=== PATIENT | female | born 1975 | race Caucasian/White ===

== ENCOUNTER 2016-11-29 07:12 | Outpatient (CLI) | payer OTHER ==
--- NOTE | 2016-11-30 16:14 | Mammography Report ---
DIGITAL SCREENING MAMMOGRAM: 11/29/2016 CLINICAL INDICATION: A 40-year-old nulliparous patient with family history of breast cancer, for scre ening. COMPARISON: 02/2015, 11/2009. TECHNIQUE: Routine CC and MLO projections were obtained of the breasts. FINDINGS: The breasts again demonstrate scattered fibroglandular densities bilaterally. Punctate, ty pically benign calcifications are present. No suspicious masses, clustered microcalcifications, or re gions of architectural distortion are identified. IMPRESSION: BENIGN FINDINGS. RECOMMENDATION: ROUTINE ANNUAL SCREENING UNLESS OTHERWISE CLINICALLY INDICATED. BIRADS CATEGORY 2-BENIGN FINDINGS. STANDARD QUALIFYING STATEMENTS 1. This examination was reviewed with the aid of Computer-Aided Detection (CAD). 2. A negative or benign imaging report should not delay biopsy if clinically suspicious findings are present. Consider surgical consultation if warranted. More than 5% of cancers are not identified by i maging. 3. Dense breasts may obscure an underlying neoplasm. JOB #: [id number] EXT JOB #:[id number]
== END 2016-11-29 07:13 | disposition home or self-care (01) ==
LOC: DI 07:12
PROVIDERS: ATTEND Nurse Practitioner Family
DX: Z12.31 Encounter for screening mammogram for malignant neoplasm of breast (principal); Z80.3 Family history of malignant neoplasm of breast
CPT/HCPCS: 77067

== ENCOUNTER 2017-10-09 15:45 | Outpatient (CLI) | payer OTHER ==
--- NOTE | 2017-10-10 08:23 | XRAY Report ---
Procedure Date: 10/09/2017 Accession Number: [id number] / [id number] Procedure: XRS - Knee 3 View LT CPT Code: FULL RESULT: EXAM: Knee 3 View LT DATE: 10/09/2017 4:20 PM CLINICAL HISTORY: PAIN IN LEFT KNEE, PAIN IN RIGHT FOOT COMPARISON: None. TECHNIQUE: 3 views. FINDINGS: Bones: Normal. No fractures or bone lesions. Joints: Degenerative changes are most pronounced in the medial femoral tibial compartment, [id number]. No joint effusion. Soft Tissues: Normal. No soft tissue swelling. IMPRESSION: Osteoarthrosis. RADIA
--- NOTE | 2017-10-10 08:24 | XRAY Report ---
Procedure Date: 10/09/2017 Accession Number: [id number] / [id number] Procedure: XRS - Foot 3 View RT CPT Code: FULL RESULT: EXAM: Foot 3 View RT DATE: 10/09/2017 4:20 PM CLINICAL HISTORY: PAIN IN LEFT KNEE, PAIN IN RIGHT FOOT COMPARISON: None. TECHNIQUE: 3 views. FINDINGS: Bones: Metallic density wiring projects over the base of the first metatarsal which demonstrates posttraumatic changes, likely orthopedic hardware not definitively identified. No fracture or aggressive osseous lesion is seen. There is inferior calcaneal spurring. Joints: Mild degenerative changes about the midfoot. Soft Tissues: Normal. No soft tissue swelling. IMPRESSION: Posttraumatic changes in the first ray and mild degenerative changes in the midfoot. Inferior calcaneal spurring. RADIA
== END 2017-10-09 15:46 | disposition home or self-care (01) ==
LOC: DI.S 15:45
PROVIDERS: ATTEND Nurse Practitioner Family
DX: M17.12 Unilateral primary osteoarthritis, left knee (principal); M79.671 Pain in right foot; M77.31 Calcaneal spur, right foot

== ENCOUNTER 2019-01-08 07:36 | Outpatient (CLI) | payer OTHER ==
[2019-01-08 10:40] LABS: BASOPHILS % (AUTO) 0.8 %; EOSINOPHILS # (AUTO) 0.1 10^3/uL (0.0-0.7); EOSINOPHILS % (AUTO) 2.4 %; HGB - HEMOGLOBIN 13.3 g/dL (12.0-16.0); LYMPHOCYTES # (AUTO) 1.4 10^3/uL (1.5-3.5); LYMPHOCYTES % (AUTO) 26.7 %; MEAN CORPUSCULAR HEMOGLOBIN 27.3 pg (27.0-31.0); MEAN CORPUSCULAR HGB CONC 31.9 g/dL (32.0-36.0); MEAN CORPUSCULAR VOLUME 85.6 fL (81.0-99.0); MEAN PLATELET VOLUME 11.2 fL (7.9-10.8); MONOCYTES # (AUTO) 0.4 10^3/uL (0.0-1.0); MONOCYTES % (AUTO) 8.1 %; NEUTROPHILS # (AUTO) 3.1 10^3/uL (1.5-6.6); NEUTROPHILS % (AUTO) 61.6 %; PLT - PLATELET COUNT 213 10^3/uL (130-450); RED BLOOD COUNT 4.87 10^6/uL (4.20-5.40); RED CELL DISTRIBUTION WIDTH 14.2 % (12.0-15.0); WHITE BLOOD COUNT 5.1 x10^3/uL (4.8-10.8)
[2019-01-08 10:51] LABS: ALKALINE PHOSPHATASE 51 IU/L (42-121); ALT ALANINE AMINOTRANSFERASE 20 IU/L (10-60); AST ASPARTATE AMINOTRANSFERASE 19 IU/L (10-42); BUN - BLOOD UREA NITROGEN 15 mg/dL (6-20); CALCIUM 9.1 mg/dL (8.5-10.3); CARBON DIOXIDE - CO2 28 mmol/L (21-32); CHLORIDE 104 mmol/L (101-111); CHOL/HDL RATIO 3.3 (<4.4); CHOLESTEROL 167 mg/dL; CREATININE 0.8 mg/dL (0.4-1.0); GFR - MDRD 78 (>89); GLUCOSE 95 mg/dL (70-100); HDL CHOLESTEROL 50 mg/dL; LDL CHOLESTEROL,CALCULATED 98 mg/dL; SODIUM 139 mmol/L (135-145); VLDL CHOLESTEROL 19 mg/dL
[2019-01-08 10:55] LABS: HB2 TOTAL 13.3 g/dL; HEMOGLOBIN A1C 0.51 g/dL; HEMOGLOBIN A1C % 5.7 % (4.6-6.2)
== END 2019-01-08 07:37 | disposition home or self-care (01) ==
LOC: LAB.S 07:36
PROVIDERS: ATTEND Registered Nurse
DX: Z78.0 Asymptomatic menopausal state (principal); E04.9 Nontoxic goiter, unspecified; E66.9 Obesity, unspecified; L68.0 Hirsutism
CPT/HCPCS: 36415; 80053; 80061; 83036; 83721; 84443; 85025

== ENCOUNTER 2019-02-13 07:54 | Outpatient (CLI) | payer OTHER ==
--- NOTE | 2019-02-13 09:31 | Mammography Report ---
Reason: ROUTINE MAMMO Procedure Date: 02/13/2019 Accession Number: [id number] / [id number] Procedure: [facility] - Screening Mammo w/Stewart CPT Code: Final Report FULL RESULT: EXAM: Screening Mammo w/Stewart DATE: 02/13/2019 8:29 AM CLINICAL HISTORY: Screening encounter. History of nulliparity. Family history of breast cancer in the mother at the age of 60. TECHNIQUE: (B) - Bilateral CC and MLO views were obtained. COMPARISON: 11/29/2016 through 12/01/2009. PARENCHYMAL PATTERN: (A) - The breast(s) demonstrate(s) scattered fibroglandular densities. FINDINGS: There are no suspicious masses, calcifications, or areas of distortion. IMPRESSION: Negative examination. BI-RADS category 1. RECOMMENDATION: (ANNUAL) - Recommend routine annual screening mammography. BI-RADS CATEGORY: (1) - Negative. STANDARD QUALIFYING STATEMENTS: 1. This examination was not reviewed with the aid of Computer-Aided Detection (CAD). 2. A negative or benign imaging report should not preclude biopsy if clinically suspicious findings are present. 3. Dense breasts may obscure an underlying neoplasm. 4. This examination was reviewed with the aid of 3D breast imaging (tomosynthesis).
== END 2019-02-13 07:55 | disposition home or self-care (01) ==
LOC: DI 07:54
DX: Z12.31 Encounter for screening mammogram for malignant neoplasm of breast (principal); Z80.3 Family history of malignant neoplasm of breast
CPT/HCPCS: 77063; 77067

== ENCOUNTER 2019-02-23 07:12 | Outpatient (CLI) | payer OTHER ==
--- NOTE | 2019-02-23 16:34 | Ultrasound Report ---
Reason: VAGINAL DISCHARGE, POS Procedure Date: 02/23/2019 Accession Number: [id number] / [id number] Procedure: US - Pelvic w/Transvaginal CPT Code: Final Report FULL RESULT: EXAM: PELVIC ULTRASOUND EXAM DATE: 02/23/2019 09:00 AM. CLINICAL HISTORY: Vaginal discharge, PCOS. LMP: 1.5 weeks ago. COMPARISON: None. TECHNIQUE: Realtime transabdominal pelvic scan performed to identify the uterus and adnexa and as an overview of other pelvic structures, followed by transvaginal scan to provide greater detail of the uterus and adnexa, with static image documentation. FINDINGS: Uterus: 8.5 x 4.3 x 5.7 cm, volume 108 cc. Anteverted position. Normal overall size and echotexture. Masses: None. Endometrium: 9 mm. There is an anterior fundal endometrial echogenic nodule with small blood flow in the base, 0.9 x 0.5 x 0.9 cm. Cervix: There are 2 nabothian cysts. Right Ovary: 4.2 x 2.7 x 2.1 cm, volume 12.4 cc. There are multiple peripheral follicle structures. Normal blood flow. Left Ovary: 3.1 x 2.2 x 3.5 cm, volume 12.5 cc. There are multiple peripheral follicle structures. Normal blood flow. Free Fluid: None. Other: None. IMPRESSION: 1. Prominent size of the bilateral ovaries with multiple peripheral follicle structures, suggesting PCOS. 2. An anterior fundal endometrial echogenic nodule with small blood flow in the base, 0.9 x 0.5 x 0.9 cm, suspicious for atypical appearance of endometrial polyp versus pedunculated submucosal fibroid. RADIA
== END 2019-02-23 07:13 | disposition home or self-care (01) ==
LOC: DI 07:12
PROVIDERS: ATTEND Obstetrics & Gynecology
DX: N89.8 Other specified noninflammatory disorders of vagina (principal); E28.2 Polycystic ovarian syndrome
CPT/HCPCS: 76830; 76856

== ENCOUNTER 2019-08-17 08:00 | Outpatient (CLI) | payer OTHER | END 2019-08-17 23:59 | disposition home or self-care (01) | LOC: LAB.R 08:00 | PROVIDERS: ATTEND Nurse Practitioner Family | DX: R19.7 Diarrhea, unspecified (principal) | CPT/HCPCS: 81599; 87177; 87209; 87329 ==

== ENCOUNTER 2019-09-08 05:29 | Outpatient (CLI) | payer OTHER | END 2019-09-08 23:59 | disposition home or self-care (01) | LOC: LAB.R 05:29 | PROVIDERS: ATTEND Nurse Practitioner Family | DX: R19.7 Diarrhea, unspecified (principal) | CPT/HCPCS: 87493 ==

== ENCOUNTER 2019-11-16 14:56 | Outpatient (CLI) | payer OTHER ==
[2019-11-16 15:16] LABS: BASOPHILS % (AUTO) 0.5 %; EOSINOPHILS # (AUTO) 0.2 10^3/uL (0.0-0.7); EOSINOPHILS % (AUTO) 3.1 %; HGB - HEMOGLOBIN 13.2 g/dL (12.0-16.0); LYMPHOCYTES # (AUTO) 2.2 10^3/uL (1.5-3.5); LYMPHOCYTES % (AUTO) 28.6 %; MEAN CORPUSCULAR HEMOGLOBIN 27.4 pg (27.0-31.0); MEAN CORPUSCULAR HGB CONC 31.7 g/dL (32.0-36.0); MEAN CORPUSCULAR VOLUME 86.3 fL (81.0-99.0); MEAN PLATELET VOLUME 10.8 fL (7.9-10.8); MONOCYTES # (AUTO) 0.6 10^3/uL (0.0-1.0); MONOCYTES % (AUTO) 8.1 %; NEUTROPHILS # (AUTO) 4.6 10^3/uL (1.5-6.6); NEUTROPHILS % (AUTO) 59.4 %; PLT - PLATELET COUNT 259 10^3/uL (130-450); RED BLOOD COUNT 4.82 10^6/uL (4.20-5.40); RED CELL DISTRIBUTION WIDTH 14.6 % (12.0-15.0); WHITE BLOOD COUNT 7.7 x10^3/uL (4.8-10.8)
== END 2019-11-16 14:57 | disposition home or self-care (01) ==
LOC: LAB 14:56
PROVIDERS: ATTEND Obstetrics & Gynecology
DX: Z01.812 Encounter for preprocedural laboratory examination (principal); Z20.828 Contact with and (suspected) exposure to other viral communicable diseases; N84.0 Polyp of corpus uteri; Z30.014 Encounter for initial prescription of intrauterine contraceptive device
CPT/HCPCS: 36415; 85025

== ENCOUNTER 2019-11-19 06:19 | Day surgery (SDC) | payer OTHER ==
[2019-11-19] MEDS ORDERED: KETAMINE 500 MG/10 ML VIAL IVP ONE (06:20)
[2019-11-19] MEDS ORDERED: METOPROLOL 5 MG/5 ML VIAL IVP ONE (06:20)
[2019-11-19] MEDS ORDERED: MIDAZOLAM 2 MG/2 ML VIAL IVP ONE (06:20)
[2019-11-19] MEDS ORDERED: ONDANSETRON 4 MG/2 ML VIAL IVP ONE (06:20)
[2019-11-19] MEDS ORDERED: DEXAMETHASONE 4 MG/ML VIAL IVP ONE (06:20)
[2019-11-19] MEDS ORDERED: PROPOFOL 200 MG/20 ML VIAL IVP ONE (06:20)
[2019-11-19] MEDS ORDERED: LACTATED RINGERS 1,000 ML IV ONE ×2 (06:24→09:05)
[2019-11-19 06:54] LABS: HCG UR QUAL NEGATIVE
[2019-11-19] MEDS ORDERED: CELECOXIB 100 MG CAPSULE PO ONE (07:17)
[2019-11-19] MEDS ORDERED: GABAPENTIN 400 MG CAPSULE ONE (07:17)
[2019-11-19] MEDS ORDERED: LIDOCAINE 1%-EPI 1:100000 20 ML MDV ONE (07:21)
[2019-11-19] MEDS ORDERED: LIDOCAINE-MPF 1% 30 ML VIAL ONE (07:21)
--- NOTE | 2019-11-19 07:29 | ANESTHESIA ---
Pre-Anesthesia VS, & Labs - Diagnosis endometrial polyp, - Procedure Myosure hysteroscopy, D&C Vital Signs: Temp Pulse Resp BP Pulse Ox 36.2 C L 74 12 134/92 H 98 11/19/19 06:24 11/19/19 06:24 11/19/19 06:24 11/19/19 06:24 11/19/19 06:24 Height: 5 ft 7 in Weight (kg): 130.6 kg Body Mass Index: 45.1 BMI Classification: Morbidly Obese - NPO >8 hours - Is Patient ?: No - Lab Results Current Lab Results: Laboratory Tests 11/19/19 07:16: POC Whole Bld Glucose 95 Lab results reviewed: Yes Home Medications and Allergies Home Medications: Ambulatory Orders Ascorbic Acid [Vitamin C] 1,000 mg PO DAILY 11/11/19 Biotin 2,000 mcg PO DAILY 11/11/19 Cholecalciferol (Vitamin D3) [Vitamin D3] 2 tab PO DAILY 11/11/19 Lactobacillus Acidophilus [Probiotic Acidophilus] 1 each PO DAILY 11/11/19 Multivitamin 1 each PO DAILY 11/11/19 Ascorbic Acid [Vitamin C] 1,000 mg PO DAILY 11/11/19 Biotin 2,000 mcg PO DAILY 11/11/19 Cholecalciferol (Vitamin D3) [Vitamin D3] 2 tab PO DAILY 11/11/19 Lactobacillus Acidophilus [Probiotic Acidophilus] 1 each PO DAILY 11/11/19 Multivitamin 1 each PO DAILY 11/11/19 Allergies/Adverse Reactions: Allergies Allergy/AdvReac Type Severity Reaction Status Date / Time acetaminophen Allergy itchy skin Verified 11/11/19 11:43 arouns eyes codeine Allergy Unknown Verified 11/11/19 11:43 Anes History & Medical History - Anesthetic History Anesthesia Complications: reports: No previous complications Family history of Anesthesia Complications: Denies Family history of Malignant Hyperthermia: Denies (no cpap use, pt not tolerated) - Medical History Cardiovascular: reports: None Pulmonary: reports: Sleep apnea Gastrointestinal: reports: None Urinary: reports: Kidney stones Musculoskeletal: reports: Osteoarthritis Endocrine/Autoimmune: reports: Other Skin: reports: None - Surgical History Orthopedic: Other Exam General: Alert, Oriented x3, Cooperative, No acute distress Dental: WNL Mouth Openin Fingerbreadth Neck Mobility: Normal Mallampati classification: II Respiratory: Lungs clear, Normal breath sounds, No respiratory distress, No accessory muscle use Cardiovascular: Regular rate, Normal S1, Normal S2, No murmurs Plan Anesthesia Type: General Consent for Procedure(s) Verified and Reviewed: Yes Code Status: Attempt Resuscitation ASA classification: 3-Severe systemic disease Is this case an emergency?: No
[2019-11-19] MEDS ORDERED: ePHEDrine 50 MG/ML VIAL IVP PRN (07:33)
[2019-11-19] MEDS ORDERED: METOCLOPRAMIDE 10 MG/2 ML VIAL IVP PRN (07:33)
[2019-11-19] MEDS ORDERED: fentaNYL 100 MCG/2 ML VIAL IVP PRN (07:33)
[2019-11-19] MEDS ORDERED: MORPHINE 2 MG/ML CARPUJECT IVP PRN (07:33)
[2019-11-19] MEDS ORDERED: HYDROmorphone 0.5 MG/0.5 ML SYRINGE IVP PRN (07:33)
[2019-11-19] MEDS ORDERED: NALOXONE 0.4 MG/ML VIAL IVP PRN (07:33)
[2019-11-19] MEDS ORDERED: ONDANSETRON 4 MG/2 ML VIAL IVP PRN (07:33)
[2019-11-19] MEDS ORDERED: ATROPINE ABBOJECT 1 MG/10 ML SYRINGE IVP PRN (07:33)
[2019-11-19] MEDS ORDERED: LACTATED RINGERS 1,000 ML IV SCH (08:00)
[2019-11-19] MEDS ORDERED: LIDOCAINE 1%-EPI 1:100000 30 ML MDV SUBQ ONE (08:20)
--- NOTE | 2019-11-19 08:58 | OPERATIVE REPORT ---
Operative Report - General Procedure Date: 11/19/19 Planned Procedure: Hysteroscopy D&C and possible polypectomy Pre-Op Diagnosis: Endometrial polyp on pelvic us, Gelatinous vaginal discharge Procedure Performed: Hysteroscopy D&C and polypectomy Post Op Diagnosis: Same - Procedure Note Primary Surgeon: Natalie Méndez MD Anesthesia Provider: Jonathon Wisdom CRNA Anesthesia Technique: General LMA Pathology: Uterine contents IV Fluids (mL): 1,000 Estimated Blood Loss (mL): 5 Urine Output (mL): 20 (Estimated, I&O catheterization at start of procedure) Indications: Patient is a 43-year-old G0 seen in clinic on 02/09/2019 and again on 04/09/2019 with report of perimenopausal symptoms and high-volume thin watery discharge immediately before and after her menses. She underwent a pelvic us on 02/23/19 that showed a endometrial echogenic nodule with small blood flow on the base measuring 0.9 x 0.5 x 0.9 cm consistent with polyp. Desires surgical management. Findings: Uterine cavity with 1-2 cm polyps at the left lateral aspect of the uterine cavity with thickening in the posterior uterine floor. Bilateral tubal ostia visualized. Complications: None - Other Other Information/Narrative: Risks benefits and alternatives to the procedure were reviewed. Consent was again confirmed. Patient was taken to the operating room where she underwent general anesthesia. She was positioned in dorsolithotomy position with legs resting in yellowfin stirrups. She was prepped and draped in the usual sterile fashion. Preoperative antibiotics were not indicated. Preoperative checklist was performed. Exam under anesthesia was performed. Speculum was placed in the vagina and the cervix was visualized. Single-tooth tenaculum was placed at the anterior cervical lip. Paracervical block was administered using a total of 20 cc of 1% lidocaine with epinephrine was injected at the 4:00 and 8:00 positions lateral to the portio of the cervix. The cervical os was serially dilated with Hegar dilators to accommodate the caliber of the diagnostic hysteroscope. The hysteroscope was inserted and findings were noted as above. The hysteroscopic morcellator was inserted through the operative port. The intrauterine polyps were morcellated under direct visualization. Uterine cavity was smooth at close of the procedure. Hysteroscope was removed. Sharp curettage D&C was performed with sharp curettage. All instruments were removed from the uterus. Tenaculum was removed. Tenaculum sites were noted to be hemostatic. All instruments were removed from the vagina. Procedure was well-tolerated without complication. Fluid deficit:140 cc NS
[2019-11-19] MEDS ORDERED: HYDROmorphone 0.5 MG/0.5 ML SYRINGE ONE (09:06)
--- NOTE | 2019-11-19 09:24 | ANESTHESIA POST OP EVALUATION ---
Anesthesia Post Eval - Post Anesthesia Eval Vitals: Last Vital Signs Temp 36.4 C L 11/19/19 09:14 Pulse 88 11/19/19 09:14 Resp 12 11/19/19 09:14 BP 133/74 H 11/19/19 09:14 Pulse Ox 100 11/19/19 09:14 CV Function Including HR & BP: positive: Stable Pain Control: positive: Satisfactory Nausea & Vomiting: positive: Negative Mental Status: positive: Baseline Respiratory Status: Airway Patent Hydration Status: Satisfactory Anesthesia Complications: positive: None
[2019-11-19 09:42] VITALS: BP 120/68
[2019-11-19] MEDS ORDERED: ONDANSETRON 4 MG/2 ML VIAL ONE (09:52)
== END 2019-11-19 06:20 | disposition home or self-care (01) ==
LOC: SDS 06:19
PROVIDERS: ATTEND Obstetrics & Gynecology
PROC: 0UDB7ZZ Extraction of Endometrium, Via Natural or Artificial Opening (ICD-10-PCS; 2019-11-19)
PROC: 0UB98ZZ Excision of Uterus, Via Natural or Artificial Opening Endoscopic (ICD-10-PCS; principal; 2019-11-19 07:30)
DX: N84.0 Polyp of corpus uteri (principal); E28.2 Polycystic ovarian syndrome; N89.8 Other specified noninflammatory disorders of vagina; E66.01 Morbid (severe) obesity due to excess calories; Z68.42 Body mass index [BMI] 45.0-49.9, adult; G47.30 Sleep apnea, unspecified
CPT/HCPCS: 58558; 81025; A9270; J1170; J7120

== ENCOUNTER 2020-03-24 08:45 | Outpatient (CLI) | payer OTHER ==
--- NOTE | 2020-03-25 09:56 | Mammography Report ---
BILATERAL DIGITAL SCREENING MAMMOGRAM 3D/2D: 03/24/2020 CLINICAL: Family history of breast cancer. Routine screening. Comparison is made to exams dated: 02/13/2019 mammogram, 11/29/2016 mammogram, and 02/17/2015 mammogr am - [facility]. There are scattered fibroglandular elements in both breasts. No significant masses, calcifications, or other findings are seen in either breast. There has been no significant interval change. IMPRESSION: NEGATIVE There is no mammographic evidence of malignancy. A 1 year screening mammogram is recommended. This exam was interpreted at Station ID: [id number]. NOTE: For mammograms, a report in lay terms will be sent to the patient. Approximately 15% of breast malignancies will not be visualized mammographically. In the management of a palpable breast mass, a negative mammogram must not discourage biopsy of a clinically suspicious lesion. Electronically Signed By: Daren Quiroga M.D. ar/kahlilrad:03/24/2020 10:13:35 ACR BI-RADS Category 1: Negative 3341F PARENCHYMAL PATTERN: (A) - The breast(s) demonstrate(s) scattered fibroglandular densities. BI-RADS CATEGORY: (1) - 1 RECOMMENDATION: (ANNUAL) - Recommend routine annual screening mammography. [id number] 1 year screening LATERALITY: (B)
== END 2020-03-24 08:46 | disposition home or self-care (01) ==
LOC: DI.N 08:45
PROVIDERS: ATTEND Registered Nurse
DX: Z12.31 Encounter for screening mammogram for malignant neoplasm of breast (principal); Z80.3 Family history of malignant neoplasm of breast

== ENCOUNTER 2022-01-10 07:55 | Outpatient (CLI) | payer OTHER ==
--- NOTE | 2022-01-10 16:26 | Mammography Report ---
BILATERAL DIGITAL SCREENING MAMMOGRAM 3D/2D: 01/10/2022 CLINICAL: Routine screening. Family history of breast cancer. Comparison is made to exams dated: 03/24/2020 mammogram, 02/13/2019 mammogram, and 11/29/2016 mammogra m - [facility]. There are scattered areas of fibroglandular density in both breasts (category b / 25%-50% glandular t issue). No significant masses, calcifications, or other findings are seen in either breast. There has been no significant interval change. IMPRESSION: NEGATIVE There is no mammographic evidence of malignancy. A 1 year screening mammogram is recommended. This exam was interpreted at Station ID: [id number]. NOTE: For mammograms, a report in lay terms will be sent to the patient. Approximately 15% of breast malignancies will not be visualized mammographically. In the management of a palpable breast mass, a negative mammogram must not discourage biopsy of a clinically suspicious lesion. Electronically Signed By: Torres hyde/margie:01/10/2022 10:18:07 ACR BI-RADS Category 1: Negative 3341F PARENCHYMAL PATTERN: (A) - The breast(s) demonstrate(s) scattered fibroglandular densities. BI-RADS CATEGORY: (1) - 1 RECOMMENDATION: (ANNUAL) - Recommend routine annual screening mammography. [id number] 1 year screening LATERALITY: (B)
== END 2022-01-10 07:56 | disposition home or self-care (01) ==
LOC: DI.S 07:55
PROVIDERS: ATTEND Physician Assistant
DX: Z12.31 Encounter for screening mammogram for malignant neoplasm of breast (principal); Z80.3 Family history of malignant neoplasm of breast

== ENCOUNTER 2022-03-13 06:46 | Outpatient (CLI) | payer OTHER ==
--- NOTE | 2022-03-13 15:23 | Ultrasound Report ---
PROCEDURE: Bladder INDICATIONS: INCREASED URINATION TECHNIQUE: Real-time scanning was performed of the kidneys and bladder, with image documentation. COMPARISON: None. FINDINGS: Urinary bladder is normal. No wall thickening or bladder mass. No post void residual. Bilat eral ureteral jets noted. IMPRESSION: Normal bladder ultrasound. Reviewed by: Norm Gilmore MD on 03/13/2022 3:22 PM PST Approved by: Norm Gilmore MD on 03/13/2022 3:22 PM [facility] Station ID: [id number]
== END 2022-03-13 06:47 | disposition home or self-care (01) ==
LOC: DI 06:46
PROVIDERS: ATTEND Registered Nurse
DX: R35.0 Frequency of micturition (principal)

== ENCOUNTER 2022-04-02 07:00 | Outpatient (CLI) | payer OTHER ==
--- NOTE | 2022-04-02 15:45 | Ultrasound Report ---
PROCEDURE: Pelvic w/Transvaginal INDICATIONS: DYSMENORRHEA TECHNIQUE: Real-time scanning was performed of the pelvic organs, with image documentation. Additional endovagi nal scanning was necessary due to incomplete visualization of the adnexal and endometrial structures by transabdominal scanning. COMPARISON: 02/23/2019. FINDINGS: Uterus: Uterus is anteverted and normal in size at 8.6 x 5.6 x 5.2 cm. The myometrium is homogeneou s. No 0.9 x 0.9 x 0.9 cm intramural fibroid is seen in posterior right myometrium. 0.6 x 0.8 x 0.7 c m intramural fibroid is also seen in posterior myometrium near midline. The endometrium measures 10.8 mm in combined thickness. No endometrial mass or fluid collection is seen. No polyp is noted on the current study. Multiple nabothian cysts are noted within endocervical canal measures up to 1.1 x 1.3 x 0.7 cm in size. Ovaries: The right ovary measures 3.2 x 1.4 x 1.8 cm, with a calculated ovarian volume of 4.0 cc. T he left ovary measures 4 x 3.2 x 2.9 cm, with a calculated ovarian volume of 19.3 cc. The ovaries chirinos ve a normal sonographic appearance. Less than 12 follicles can be seen in each ovary. No adnexal ma sses are seen. Other: No pathologic free abdominal or pelvic fluid. IMPRESSION: 1. 2 small posterior myometrial intramural fibroids as above. No endometrial mass or fluid. No discre te polyp is noted on the current study. Multiple nabothian cysts as above. 2. Normal-appearing bilateral ovaries. Reviewed by: Chi Allen MD on 04/02/2022 3:44 PM PST Approved by: Chi Allen MD on 04/02/2022 3:44 PM PST Station ID: [id number]
== END 2022-04-02 07:01 | disposition home or self-care (01) ==
LOC: DI 07:00
PROVIDERS: ATTEND Registered Nurse
DX: D25.1 Intramural leiomyoma of uterus (principal); N88.8 Other specified noninflammatory disorders of cervix uteri

== ENCOUNTER 2023-02-18 14:31 | Outpatient (CLI) | payer OTHER ==
--- NOTE | 2023-02-19 08:49 | Mammography Report ---
BILATERAL DIGITAL SCREENING MAMMOGRAM 3D/2D: 02/18/2023 CLINICAL: Routine screening. Comparison is made to exams dated: 01/10/2022 mammogram, 03/24/2020 mammogram, 02/13/2019 mammogram, a nd 11/29/2016 mammogram - [facility]. There are scattered areas of fibroglandular density in both breasts (category b / 25%-50% glandular t issue). No significant masses, calcifications, or other findings are seen in either breast. There has been no significant interval change. IMPRESSION: NEGATIVE There is no mammographic evidence of malignancy. A 1 year screening mammogram is recommended. Based on the Tyrer Cuzick model (a risk assessment model) the patients lifetime risk is 19.5% and he r 10 year risk is 4.5%. According to the ACR, ACS, and NCCN guidelines, an annual breast MRI exam nay ng with mammogram is recommended if the patients lifetime risk is 20% or greater. This exam was interpreted at Station ID: [id number]. NOTE: For mammograms, a report in lay terms will be sent to the patient. Approximately 15% of breast malignancies will not be visualized mammographically. In the management of a palpable breast mass, a negative mammogram must not discourage biopsy of a clinically suspicious lesion. Electronically Signed By: Amrita valentine/margie:02/18/2023 17:25:06 letter sent: No_Letter ACR BI-RADS Category 1: Negative 3341F PARENCHYMAL PATTERN: (A) - The breast(s) demonstrate(s) scattered fibroglandular densities. BI-RADS CATEGORY: (1) - 1 Mammogram [id number] 1 year screening LATERALITY: (B)
== END 2023-02-18 14:32 | disposition home or self-care (01) ==
LOC: DI 14:31
PROVIDERS: ATTEND Registered Nurse
DX: Z12.31 Encounter for screening mammogram for malignant neoplasm of breast (principal); R92.323 Mammographic fibroglandular density, bilateral breasts

== ENCOUNTER 2023-04-08 06:49 | Outpatient (CLI) | payer OTHER ==
--- NOTE | 2023-04-08 09:08 | XRAY Report ---
PROCEDURE: Knee 3V BL INDICATIONS: BILATERAL KNEE PAIN TECHNIQUE: 3 views of the knee(s) were acquired. COMPARISON: None. FINDINGS: Bones: No fractures or dislocations. Mild to moderate bilateral tricompartmental osteoarthritis is s een more notably in medial femoral tibial compartments and patellofemoral compartments. No significan t patellar subluxation. No suspicious bony lesions. Soft tissues: No knee joint effusion. No suspicious soft tissue calcifications or masses. IMPRESSION: Symmetric appearing mild to moderate bilateral tricompartmental osteoarthritis most notably in medial femoral tibial compartments and patellofemoral compartment. No acute fracture or dislocation. No sig nificant joint effusion. Reviewed by: Chi Allen MD on 04/08/2023 9:07 AM PST Approved by: Chi Allen MD on 04/08/2023 9:07 AM PST Station ID: [id number]
--- NOTE | 2023-04-08 16:33 | Ultrasound Report ---
PROCEDURE: Soft Tissue Head or Neck INDICATIONS: THYROID NODULE TECHNIQUE: Real-time scanning was performed of the thyroid gland, with image documentation. COMPARISON: Thyroid ultrasound 04/15/2014 FINDINGS: Right: Thyroid lobe measures 7.6 x 3.2 x 3.3 cm, and is heterogeneous in echotexture. Left: Thyroid lobe measures 6.6 x 2.7 x 2.4 cm, and is heterogeneous in echotexture. Isthmus: 0.7 cm thick. Nodule number: One Location: Left superior Size: 1.1 x 0.8 x 1.0 cm. Composition: Mixed cystic and solid (1 point). Echogenicity: Isoechoic (1 point). Shape: wider than tall (0 points). Margins: Smooth (0 points). Echogenic foci: None (0 points). Total points: 2 ACR TI-RADS category: TI-RADS 2: Not suspicious. IMPRESSION: Bilaterally enlarged thyroid, as before. Left 1.1 cm benign nodule. ACR TI-RADS definitions and recommendations: TI-RADS 1 (benign): 0 points. FNA not needed. TI-RADS 2 (not suspicious): 2 points. FNA not needed. TI-RADS 3 (mildly suspicious): 3 points. "FNA if 2.5 cm or larger, follow up if 1.5 cm or larger (at 1, 3, and 5 years). TI-RADS 4 (moderately suspicious): 4-6 points. "FNA if 1.5 cm or larger, follow up if 1 cm or larger (at 1, 2, 3, and 5 years). TI-RADS 5 (highly suspicious): 7 points or more. "FNA if 1 cm or larger, follow up if 0.5 cm or larger (every year for 5 years). Reviewed by: Adele Santana MD on 04/08/2023 4:32 PM PST Approved by: Adele Santana MD on 04/08/2023 4:32 PM PST Station ID: [id number]
== END 2023-04-08 06:50 | disposition home or self-care (01) ==
LOC: DI 06:49
PROVIDERS: ATTEND Registered Nurse
DX: E04.1 Nontoxic single thyroid nodule (principal); M17.0 Bilateral primary osteoarthritis of knee